=== PATIENT | female | born 1990 | race Caucasian/White ===

== ENCOUNTER 2016-11-03 22:35 | Emergency (ER) | payer MEDICAID ==
[~2016-11-03 22:35] MED LIST: NO REPORTABLE MEDS
== END 2016-11-03 22:46 | disposition left against medical advice (07) ==
LOC: ER 22:39
DX: Z53.21 Procedure and treatment not carried out due to patient leaving prior to being seen by health care provider (principal)

== ENCOUNTER 2017-10-06 13:23 | Emergency (ER) | payer MEDICAID ==
--- NOTE | 2017-10-06 13:50 | NUR ---
CALLED TO TRIAGE, NO ANSWER
--- NOTE | 2017-10-06 14:20 | NUR ---
CALLED TO TRIAGE, NO ANSWER
--- NOTE | 2017-10-06 15:03 | NUR ---
CALLED TO TRIAGE,NO ANSWER
== END 2017-10-06 15:04 | disposition left against medical advice (07) ==
LOC: ER 13:26
DX: Z53.21 Procedure and treatment not carried out due to patient leaving prior to being seen by health care provider (principal)

== ENCOUNTER 2020-10-30 12:11 | Emergency (ER) | payer MEDICAID ==
[~2020-10-30] VITALS: Ht 152.4 cm; Wt 90.7 kg
--- NOTE | 2020-10-30 12:25 | NUR ---
BACK AND EPIGASTRIC PAIN SINCE THIS MORNING. PATIENT A/OX4, BREATHING EVEN AND UNLABORED, NO SOB NOTED, NEEDS ATTENDED. KEPT COMFORTABLE.
[2020-10-30] MEDS ORDERED: MAG HYDROX/AL HYDROX/SIMETH 30 ML UDC PO ONE (12:30)
[2020-10-30] MEDS ORDERED: LIDOCAINE VISCOUS 2% UD 15 ML UDC MM ONE (12:30)
[2020-10-30] MEDS ORDERED: LIDOCAINE VISCOUS 2% UD 15 ML UDC ONE (12:37)
[2020-10-30] MEDS ORDERED: MAG HYDROX/AL HYDROX/SIMETH 30 ML UDC ONE (12:37)
--- NOTE | 2020-10-30 12:41 | NUR ---
u/s tech at bedside for gallbladder ultrasound.
[2020-10-30 12:43] LABS: BASOPHILS % (AUTO) 0.5 % (0.0-2.0); EOSINOPHILS % (AUTO) 1.3 % (0.0-6.0); HEMATOCRIT 39 % (33-45); HEMOGLOBIN 12.5 g/dL (11.5-14.8); LYMPHOCYTES # (AUTO) 1.9 /CMM (0.8-4.8); LYMPHOCYTES % (AUTO) 24.8 % (20.0-44.0); MEAN CORPUSCULAR HGB CONC 32 g/dl (31.0-36.0); MEAN CORPUSCULAR VOLUME 76 fL (82-100); MONOCYTES # (AUTO) 0.4 /CMM (0.1-1.30); MONOCYTES % (AUTO) 4.7 % (2.0-12.0); NEUTROPHILS # (AUTO) 5.2 /CMM (1.8-8.9); NEUTROPHILS % (AUTO) 68.7 % (43.0-81.0); PLATELET COUNT (AUTO) 335 /CMM (150-450); RED BLOOD CELL COUNT(AUTO) 5.15 MIL/uL (4.0-5.2); WHITE BLOOD COUNT (AUTO) 7.6 K/uL (4.3-11.0)
[2020-10-30 13:06] LABS: ALBUMIN 3.5 g/dL (3.4-5.0); BILIRUBIN,DIRECT 0.1 mg/dL (0.0-0.2); BILIRUBIN,TOTAL 0.2 mg/dL (0.2-1.0); CALCIUM, SERUM 8.9 mg/dL (8.5-10.1); CREATININE 0.7 mg/dL (0.6-1.3); POTASSIUM 3.8 mmol/L (3.5-5.1); TOTAL PROTEIN, SERUM 7.5 g/dL (6.4-8.2)
[2020-10-30 13:24] LABS: BILIRUBIN,URINE NEGATIVE (NEGATIVE); COLOR,URINE YELLOW (YELLOW); LEUKOCYTE ESTERASE ,URINE NEGATIVE (NEGATIVE); NITRITE, URINE NEGATIVE (NEGATIVE); PH,URINE 7.5 (5.0-8.0); PROTEIN,URINE NEGATIVE (NEGATIVE); UGLUCOSE NEGATIVE (NEGATIVE); UROBILINOGEN,URINE 0.2 EU/dL (0.2)
[2020-10-30 13:40] LABS: BACTERIA,URINE Few /HPF (None Seen); SQUAMOUS EPITHELIAL CELL,UR Few /HPF (None Seen); WBC,URINE 0-2 /HPF (0-3)
--- NOTE | 2020-10-30 13:43 | NUR ---
Patient a/ox4, ambulatory with steady gait. No distress noted. Patient discharged to home in stable condition. Written and verbal after care instructions given. Patient verbalizes understanding of instruction.
[2020-10-30 13:45] VITALS: BP 119/78
== END 2020-10-30 13:45 | disposition home or self-care (01) ==
LOC: ER 12:18
DX: R10.13 Epigastric pain (principal); E66.01 Morbid (severe) obesity due to excess calories; Z68.39 Body mass index [BMI] 39.0-39.9, adult; Z98.890 Other specified postprocedural states; Z88.6 Allergy status to analgesic agent
CPT/HCPCS: 36415; 76705-TC; 80048-TC; 80076-TC; 81001; 83690-TC; 84703-TC; 85025-TC

== ENCOUNTER 2020-12-31 19:45 | Emergency (ER) | payer MEDICAID ==
[~2020-12-31] VITALS: Ht 152.4 cm; Wt 90.7 kg
[2020-12-31] MEDS ORDERED: KETOROLAC TROMETHAMINE INJ 30 MG/ML VIAL IV ONE (20:30)
[2020-12-31] MEDS ORDERED: IV NS 0.9% 1,000 ML BAG IV ONE (20:30)
[2020-12-31 20:37] LABS: BASOPHILS % (AUTO) 0.4 % (0.0-2.0); EOSINOPHILS % (AUTO) 1.4 % (0.0-6.0); HEMATOCRIT 38 % (33-45); HEMOGLOBIN 12.1 g/dL (11.5-14.8); LYMPHOCYTES # (AUTO) 2.3 /CMM (0.8-4.8); LYMPHOCYTES % (AUTO) 30.9 % (20.0-44.0); MEAN CORPUSCULAR HGB CONC 32 g/dl (31.0-36.0); MEAN CORPUSCULAR VOLUME 76 fL (82-100); MONOCYTES # (AUTO) 0.4 /CMM (0.1-1.30); MONOCYTES % (AUTO) 5.3 % (2.0-12.0); NEUTROPHILS # (AUTO) 4.6 /CMM (1.8-8.9); PLATELET COUNT (AUTO) 327 /CMM (150-450); WHITE BLOOD COUNT (AUTO) 7.4 K/uL (4.3-11.0)
[2020-12-31] MEDS ORDERED: KETOROLAC TROMETHAMINE INJ 30 MG/ML VIAL ONE (20:47)
[2020-12-31 20:49] LABS: CALCIUM, SERUM 8.8 mg/dL (8.5-10.1); CARBON DIOXIDE 28 mmol/L (21-32); CHLORIDE 106 mmol/L (98-107); CREATININE 0.7 mg/dL (0.6-1.3); GLUCOSE 94 mg/dL (74-106); POTASSIUM 3.7 mmol/L (3.5-5.1); SODIUM SERUM 142 mmol/L (136-145); UREA NITROGEN, BLOOD 13 mg/dL (7-18)
[2020-12-31 20:55] LABS: ALANINE AMINOTRANSFERASE 40 U/L (12-78); ALBUMIN 3.5 g/dL (3.4-5.0); ALKALINE PHOSPHATASE 101 U/L (46-116); ASPARTATE AMINOTRANSFERASE 23 U/L (15-37); BILIRUBIN,DIRECT 0.1 mg/dL (0.0-0.2); BILIRUBIN,TOTAL 0.1 mg/dL (0.2-1.0); LIPASE 111 U/L (73-393); TOTAL PROTEIN, SERUM 7.6 g/dL (6.4-8.2)
[2020-12-31 21:06] LABS: BILIRUBIN,URINE NEGATIVE (NEGATIVE); COLOR,URINE YELLOW (YELLOW); LEUKOCYTE ESTERASE ,URINE NEGATIVE (NEGATIVE); NITRITE, URINE NEGATIVE (NEGATIVE); PH,URINE 7.5 (5.0-8.0); PROTEIN,URINE NEGATIVE (NEGATIVE); UGLUCOSE NEGATIVE (NEGATIVE); UROBILINOGEN,URINE 0.2 EU/dL (0.2)
[2020-12-31 21:16] LABS: BACTERIA,URINE Rare /HPF (None Seen)
[2020-12-31] MEDS ORDERED: IBUP-1955 PO (21:21)
--- NOTE | 2020-12-31 21:32 | NUR ---
Patient discharged to home in stable condition. Written and verbal after care instructions given. Patient verbalizes understanding of instruction.
--- NOTE | 2020-12-31 21:32 | NUR ---
IV removed. Catheter intact and site benign. Pressure and 4x4 applied to site. No bleeding noted.
[2020-12-31 22:22] VITALS: BP 132/86
== END 2020-12-31 22:22 | disposition home or self-care (01) ==
LOC: ER 19:47
DX: R07.89 Other chest pain (principal); E03.9 Hypothyroidism, unspecified; E11.9 Type 2 diabetes mellitus without complications; Z98.890 Other specified postprocedural states; Z88.6 Allergy status to analgesic agent
CPT/HCPCS: 36415; 71045; 80048; 80076; 81001; 83690; 84484; 84703; 85025; 87086; 93005; 96361; 96374; 99285; J1885; J7030

== ENCOUNTER 2021-08-01 14:23 | Inpatient (IN) | payer MEDICAID ==
[~2021-08-01] VITALS: Ht 152.4 cm; Wt 95.3 kg
[~2021-08-01 14:23] MED LIST changes: +IBUP-1955 PO
--- NOTE | 2021-08-01 14:46 | NUR ---
STARTED IV LINE, BLOOD SPECIMEN COLLECTED AND SENT TO THE LAB. THE LINE IS SALINE LOCKED.
[2021-08-01 14:57] LABS: BASOPHILS % (AUTO) 0.5 % (0.0-2.0); EOSINOPHILS % (AUTO) 1.5 % (0.0-6.0); HEMATOCRIT 38 % (33-45); HEMOGLOBIN 12.5 g/dL (11.5-14.8); LYMPHOCYTES # (AUTO) 2.6 K/uL (0.8-4.8); LYMPHOCYTES % (AUTO) 37.4 % (20.0-44.0); MEAN CORPUSCULAR HGB CONC 33 g/dl (31.0-36.0); MEAN CORPUSCULAR VOLUME 76 fL (82-100); MONOCYTES # (AUTO) 0.4 K/uL (0.1-1.30); NEUTROPHILS # (AUTO) 3.8 K/uL (1.8-8.9); NEUTROPHILS % (AUTO) 54.6 % (43.0-81.0); PLATELET COUNT (AUTO) 336 K/uL (150-450); RED BLOOD CELL COUNT(AUTO) 5.05 MIL/uL (4.0-5.2); WHITE BLOOD COUNT (AUTO) 6.9 K/uL (4.3-11.0)
[2021-08-01 15:05] LABS: CALCIUM, SERUM 8.7 mg/dL (8.5-10.1); CARBON DIOXIDE 26 mmol/L (21-32); CHLORIDE 104 mmol/L (98-107); CREATININE 0.8 mg/dL (0.6-1.3); GLUCOSE 137 mg/dL (74-106); POTASSIUM 3.6 mmol/L (3.5-5.1); SODIUM SERUM 140 mmol/L (136-145); UREA NITROGEN, BLOOD 10 mg/dL (7-18)
--- NOTE | 2021-08-01 15:31 | NUR ---
REPEAT EKG AT 1830
[2021-08-01] MEDS ORDERED: LEVO50TA8 PO (16:02)
[2021-08-01] MEDS ORDERED: ATOR20TA PO (16:02)
--- NOTE | 2021-08-01 16:56 | NUR ---
COVID SWAB SENT TO LAB
[2021-08-01] MEDS ORDERED: DOCUSATE SODIUM 100 MG CAPSULE PO PRN (17:30)
[2021-08-01] MEDS ORDERED: MORPHINE SULFATE INJ 2 MG/ML DISP.SYRIN IV PRN (17:30)
[2021-08-01] MEDS ORDERED: MAG HYDROX/AL HYDROX/SIMETH 30 ML UDC PO PRN (17:30)
[2021-08-01] MEDS ORDERED: NITROGLYCERIN 0.4 MG/TAB BOTTLE SL PRN (17:30)
[2021-08-01] MEDS ORDERED: ONDANSETRON HCL/PF 4 MG/2 ML VIAL IVP PRN (17:30)
[2021-08-01] MEDS ORDERED: ACETAMINOPHEN 325 MG TABLET PO PRN (17:30)
[2021-08-01] MEDS ORDERED: ENOXAPARIN SODIUM 40 MG/0.4 ML DISP.SYRIN SQ SCH ×2 (18:00→21:00)
--- NOTE | 2021-08-01 18:30 | NUR ---
REPORT GIVEN TO NENO HERNANDEZ FOR INDY
--- NOTE | 2021-08-01 18:47 | NUR ---
PT TRANSFERRED TO [address] [place] [address] [phone] VIA ACLS PROTOCOL. ALL BELONGINGS WITH PT
--- NOTE | 2021-08-01 19:55 | NUR ---
ADMITTING RN NOTES RECEIVED PT IN BED RECEIVED REPORT FROM CELSA SHIFT NURSE. PT IN BED A/0 X4 NO PAIN NO RESPIRATORY DISTRESS NOTED AT THIS TIME PT ON ROOM AIR TOLERATING WELL. PT AMBULATORY WITH STEADY GAIT. PT ADMIT DX IS CHEST PAIN R/O ACS PT WITH HX OF NON INSULIN DEPENDENT DIABETES, HYPOTHYROIDS AND CHOLECYSTECTOMY. PT ORIENTED TO ROOM AND UNIT CALL LIGHT AND TABLE WITHIN REACH PT PLACED ON TELE MONITOR. PT SKIN IS INTACT. ALL NURSING NEEDS MET AT THIS TIME. PT REQUESTED SANDWICH SANDWICH WAS PROVIDED. WILL CONTINUE TO MONITOR.
[2021-08-01 20:00] VITALS: BP 132/71
[2021-08-01] MEDS ORDERED: SIMVASTATIN 20 MG TABLET PO SCH (22:00)
[2021-08-01] MEDS ORDERED: ATORVASTATIN 10 MG TABLET PO SCH (22:00)
[2021-08-02] VITALS: BP 119/46
[2021-08-02 04:00] VITALS: BP 112/62
--- NOTE | 2021-08-02 06:28 | NUR ---
RN NOTES PT A/O X4 ASLEEP IN BED NO RESPIRATORY DISTRESS NO PAIN REPORTED. CALL LIGHT WITHIN REACH. ALL DUE MEDS GIVEN AND TOLERATED WELL. ON TELE MONITOR READING SR. WILL ENDORSE CARE TO DAY SHIFT NURSE.
[2021-08-02] MEDS ORDERED: LEVOTHYROXINE SODIUM 75 MCG TABLET PO SCH (07:30)
[2021-08-02 07:39] LABS: BASOPHILS % (AUTO) 0.5 % (0.0-2.0); HEMATOCRIT 37 % (33-45); HEMOGLOBIN 11.8 g/dL (11.5-14.8); LYMPHOCYTES # (AUTO) 2.1 K/uL (0.8-4.8); LYMPHOCYTES % (AUTO) 35.3 % (20.0-44.0); MEAN CORPUSCULAR HGB CONC 32 g/dl (31.0-36.0); MEAN CORPUSCULAR VOLUME 77 fL (82-100); MONOCYTES # (AUTO) 0.5 K/uL (0.1-1.30); MONOCYTES % (AUTO) 7.8 % (2.0-12.0); NEUTROPHILS # (AUTO) 3.2 K/uL (1.8-8.9); NEUTROPHILS % (AUTO) 54.4 % (43.0-81.0); PLATELET COUNT (AUTO) 313 K/uL (150-450); RED BLOOD CELL COUNT(AUTO) 4.82 MIL/uL (4.0-5.2); WHITE BLOOD COUNT (AUTO) 5.8 K/uL (4.3-11.0)
--- NOTE | 2021-08-02 07:52 | NUR ---
RN OPENING NOTES PATIENT IN BED, AWAKE, A/O X4. VERBALLY RESPONSIVE, ON ROOM AIR. BREATHING EVEN AND UNLABORED, NO SOB NOTED. ON RADAR ENGINEERING TEACHER, WITH NSR @80'S. DENIES ANY PAIN OR DISCOMFORT. RAC #18G PATENT AND INTACT. SAFETY MEASURES PROVIDED, BED LOCKED AND ON LOWEST POSITION, SR UP X2, CALL LIGHT PLACED WITHIN EASY REACH. WILL CONTINUE TO MONITOR.
[2021-08-02 08:03] LABS: ALBUMIN 3.1 g/dL (3.4-5.0); BILIRUBIN,TOTAL 0.3 mg/dL (0.2-1.0); CALCIUM, SERUM 8.7 mg/dL (8.5-10.1); CREATININE 0.6 mg/dL (0.6-1.3); MAGNESIUM 2.2 mg/dL (1.8-2.4); PHOSPHORUS 4.2 mg/dL (2.5-4.9); POTASSIUM 3.8 mmol/L (3.5-5.1)
[2021-08-02] MEDS ORDERED: ASPIRIN 81 MG TAB.CHEW PO SCH (09:00)
[2021-08-02] MEDS ORDERED: FENO48TA PO (09:26)
--- NOTE | 2021-08-02 11:50 | NUR ---
CUSTOMS OPENER VERIFIER PACKER NOTES PATIENT DISCHARGED HOME IN STABLE CONDITION. A/O X4, ABLE TO MAKE NEEDS KNOWN. V/S TAKEN, STABLE, AND RECORDED. ALL BELONGINGS ACCOUNTED FOR, ALL FORMS SIGNED. IV ACCESS ON LAC REMOVED, NO ACTIVE BLEEDING NOTED, DRY PRESSURE DRESSING APPLIED TO SITE. NAME ARMBAND REMOVED. HEALTH TEACHINGS GIVEN TO PATIENT WITH VERBALIZATIONS OF UNDERSTANDING. PATIENT LEFT UNIT @1145, AMBULATORY, WILL DRIVE HERSELF HOME. IN STABLE CONDITION. CHARGE NURSE AWARE OF DISCHARGE.
== END 2021-08-02 12:22 | disposition home or self-care (01) | DRG 203 ==
LOC: ER 14:29 → TRANSITION 17:10 → TELE 18:14
PROVIDERS: ADMIT Registered Nurse; ATTEND Registered Nurse
DX: R07.89 Other chest pain (principal); E03.9 Hypothyroidism, unspecified; E66.01 Morbid (severe) obesity due to excess calories; Z68.41 Body mass index [BMI] 40.0-44.9, adult; E11.9 Type 2 diabetes mellitus without complications; E78.1 Pure hyperglyceridemia; G47.33 Obstructive sleep apnea (adult) (pediatric); I10 Essential (primary) hypertension; Z90.49 Acquired absence of other specified parts of digestive tract; Z20.822 Contact with and (suspected) exposure to COVID-19
CPT/HCPCS: 36415; 71045-TC; 80048-TC; 80053-TC; 80061-TC; 83735-TC; 84100-TC; 84484-TC; 85025-TC; 87081-TC; 93307-TC; G0378; J1650; J2405

== ENCOUNTER 2021-09-24 03:07 | Emergency (ER) | payer MEDICAID ==
[~2021-09-24] VITALS: Ht 152.4 cm; Wt 95.7 kg
[~2021-09-24 03:07] MED LIST changes: +FENO48TA PO; +LEVO50TA8 PO; -NO REPORTABLE MEDS
--- NOTE | 2021-09-24 03:21 | NUR ---
PRESENTED TO THE ER FOR C/O GENERALIZED BODY RASHES. DENIED SOB HOWEVER REPORTED FEELING SOMETHING IN HER THROAT. NO KNOWN ALLERGY. PT AMBULAORY TO BED 3 ER, WAS PLACED ON A MONITOR . VSS. WILL CONT TO MONITOR.
[2021-09-24] MEDS ORDERED: diphenhydrAMINE HCL 50 MG/ML VIAL ONE (03:24)
[2021-09-24] MEDS ORDERED: predniSONE 20 MG TABLET ONE (03:24)
[2021-09-24] MEDS ORDERED: FAMOTIDINE (20 MG) 20 MG TABLET ONE (03:24)
[2021-09-24] MEDS ORDERED: FAMOTIDINE (20 MG) 20 MG TABLET PO ONE (03:30)
[2021-09-24] MEDS ORDERED: diphenhydrAMINE HCL 50 MG/ML VIAL IM ONE (03:30)
[2021-09-24] MEDS ORDERED: predniSONE 10 MG TABLET PO ONE (03:30)
--- NOTE | 2021-09-24 03:35 | NUR ---
medications given as ordered
--- NOTE | 2021-09-24 04:05 | NUR ---
bs 128
--- NOTE | 2021-09-24 05:05 | NUR ---
lutsky at bedside
[2021-09-24] MEDS ORDERED: PRED20TA PO (05:18)
[2021-09-24] MEDS ORDERED: EPIN0.3P3 IJ (05:18)
[2021-09-24 05:35] VITALS: BP 155/96
--- NOTE | 2021-09-24 05:35 | NUR ---
Patient discharged to home in stable condition. Written and verbal after care instructions given. Patient verbalizes understanding of instruction.
== END 2021-09-24 05:36 | disposition home or self-care (01) ==
LOC: ER 03:10
DX: T78.40XA Allergy, unspecified, initial encounter (principal); L50.9 Urticaria, unspecified; E11.9 Type 2 diabetes mellitus without complications; Z90.49 Acquired absence of other specified parts of digestive tract; Z98.890 Other specified postprocedural states; Z88.6 Allergy status to analgesic agent; Z79.899 Other long term (current) drug therapy; X58.XXXA Exposure to other specified factors, initial encounter
CPT/HCPCS: 82962; 96372; 99283; J1200; J7512 ×2

== ENCOUNTER 2022-08-25 17:11 | Emergency (ER) | payer MEDICAID ==
[~2022-08-25] VITALS: Ht 152.4 cm; Wt 74.8 kg
[~2022-08-25 17:11] MED LIST changes: +EPIN0.3P3 IJ; +PRED20TA PO
--- NOTE | 2022-08-25 17:43 | NUR ---
dr fernandez at bedside for eval.
--- NOTE | 2022-08-25 17:55 | NUR ---
medical lab specialist at bedside for blood draw.
[2022-08-25 18:14] LABS: BASOPHILS % (AUTO) 0.2 % (0.0-2.0); EOSINOPHILS % (AUTO) 1.3 % (0.0-6.0); HEMATOCRIT 40 % (33-45); HEMOGLOBIN 12.9 g/dL (11.5-14.8); LYMPHOCYTES # (AUTO) 1.9 K/uL (0.8-4.8); LYMPHOCYTES % (AUTO) 31.6 % (20.0-44.0); MEAN CORPUSCULAR HGB CONC 32 g/dl (31.0-36.0); MEAN CORPUSCULAR VOLUME 80 fL (82-100); MONOCYTES # (AUTO) 0.3 K/uL (0.1-1.30); MONOCYTES % (AUTO) 5.6 % (2.0-12.0); NEUTROPHILS # (AUTO) 3.6 K/uL (1.8-8.9); NEUTROPHILS % (AUTO) 61.3 % (43.0-81.0); PLATELET COUNT (AUTO) 324 K/uL (150-450); RED BLOOD CELL COUNT(AUTO) 5.03 MIL/uL (4.0-5.2); WHITE BLOOD COUNT (AUTO) 5.9 K/uL (4.3-11.0)
[2022-08-25 18:42] LABS: CALCIUM, SERUM 9.4 mg/dL (8.5-10.1); CARBON DIOXIDE 29 mmol/L (21-32); CHLORIDE 103 mmol/L (98-107); CREATININE 0.6 mg/dL (0.6-1.3); GLUCOSE 99 mg/dL (74-106); POTASSIUM 3.4 mmol/L (3.5-5.1); SODIUM SERUM 140 mmol/L (136-145); UREA NITROGEN, BLOOD 13 mg/dL (7-18)
[2022-08-25] MEDS ORDERED: KETOROLAC TROMETHAMINE INJ 60 MG/2 ML VIAL IM ONE (19:00)
[2022-08-25] MEDS ORDERED: KETOROLAC TROMETHAMINE INJ 30 MG/ML VIAL ONE (19:07)
--- NOTE | 2022-08-25 19:18 | NUR ---
Patient discharged to home in stable condition. Written and verbal after care instructions given. Patient verbalizes understanding of instruction.
[2022-08-25 19:19] VITALS: BP 152/82
== END 2022-08-25 19:19 | disposition home or self-care (01) ==
LOC: ER 17:12
DX: R07.89 Other chest pain (principal); Z90.49 Acquired absence of other specified parts of digestive tract; Z79.899 Other long term (current) drug therapy
CPT/HCPCS: 99285; 71045; 96372; 93005 ×2; 85025; 80048; 84484; J1885; 36415

== ENCOUNTER 2024-04-19 11:06 | Emergency (ER) | payer MEDICAID ==
[~2024-04-19] VITALS: Ht 152.4 cm; Wt 78.0 kg
[2024-04-19] MEDS ORDERED: PRED20TA PO (11:51)
[2024-04-19] MEDS ORDERED: DIPH25CA83 PO (11:51)
[2024-04-19] MEDS ORDERED: FAMO-131 PO (11:51)
[2024-04-19 12:32] VITALS: BP 134/91; TEMP 98.7; O2SAT 97
== END 2024-04-19 12:34 | disposition home or self-care (01) ==
LOC: ER 11:10
DX: L50.9 Urticaria, unspecified (principal); T78.49XA Other allergy, initial encounter; E11.9 Type 2 diabetes mellitus without complications; E78.5 Hyperlipidemia, unspecified; Z90.49 Acquired absence of other specified parts of digestive tract; Z88.5 Allergy status to narcotic agent; X58.XXXA Exposure to other specified factors, initial encounter